=== PATIENT | male | born 1990 ===

== ENCOUNTER 2016-08-22 06:52 | Observation (INO) | payer MEDICAID ==
[2016-08-22 07:11] VITALS: O2SAT 96
--- NOTE | 2016-08-22 07:58 | ED PDOC ---
HPI: Chest Pain Time Seen by Provider: 08/22/16 07:14 Chief Complaint (Nursing): Chest Pain Chief Complaint (Provider): Chest Pain History Per: Patient History/Exam Limitations: no limitations Onset/Duration Of Symptoms: Days (x2 days) Current Symptoms Are (Timing): Still Present Additional Complaint(s): 26 y/o male with a past medical history of hypertension who presents to the emergency department with a complaint of a diffuse chest tightness that worsened this morning before going to sleep. Associated with a difficulty breathing, cough, and mild sputum x2 days. Denies fever, chills. Of note, patient reports he works overnight shifts for a [employer], came home this morning and was not able to sleep due to the discomfort. PMD: Dr. Aniket Larson MD (Has an appointment Thursday for a physical exam; Last visit was 2 months ago for a cough & cold and was prescribed medications and inhaler) Past Medical History Reviewed: Historical Data, Nursing Documentation, Vital Signs Vital Signs: Last Vital Signs Temp 98.3 F 08/22/16 07:05 Pulse 92 H 08/22/16 07:05 Resp 16 08/22/16 07:05 BP 153/96 H 08/22/16 07:05 Pulse Ox 96 08/22/16 14:26 - Medical History PMH: HTN Denies: Chronic Kidney Disease - Surgical History Other surgeries: Bilateral knee surgery - Family History Family History: States: Diabetes (grandfather) - Social History Current smoker - smoking cessation education provided: Yes (Heavy Smoker > 10 Cigarettes Daily ) Alcohol: None Drugs: Denies - Home Medications Home Medications: Ambulatory Orders Medication Instructions Recorded Lisinopril/Hydrochlorothiazide 1 tab PO DAILY 08/22/16 [Lisinopril-Hctz 20-12.5 mg Tab] - Allergies Allergies/Adverse Reactions: Allergies Allergy/AdvReac Type Severity Reaction Status Date / Time sulfamethoxazole Allergy Mild RASH Verified 02/07/16 01:25 [From Bactrim] Sulfa (Sulfonamide Allergy RASH Verified 06/22/15 14:01 Antibiotics) trimethoprim Allergy RASH Verified 06/22/15 14:01 Review of Systems ROS Statement: Except As Marked, All Systems Reviewed And Found Negative Constitutional: Negative for: Fever, Chills Cardiovascular: Positive for: Other (Diffuse Chest tightness) Respiratory: Positive for: Cough, Sputum (Mild), Other (Difficulty breathing) Physical Exam - Reviewed Nursing Documentation Reviewed: Yes Vital Signs Reviewed: Yes - Physical Exam Appears: Positive for: Non-toxic, No Acute Distress Head Exam: Positive for: ATRAUMATIC, NORMOCEPHALIC Skin: Positive for: Normal Color, Warm, Dry ENT: Positive for: Pharyngeal Erythema (Mild; with abscess ulcer noted) Neck: Positive for: Normal, Supple Cardiovascular/Chest: Positive for: Regular Rate, Rhythm. Negative for: Murmur Respiratory: Positive for: Normal Breath Sounds. Negative for: Accessory Muscle Use, Respiratory Distress Gastrointestinal/Abdominal: Positive for: Normal Exam, Soft. Negative for: Tenderness Extremity: Positive for: Normal ROM. Negative for: Tenderness (No calf tenderness), Pedal Edema, Swelling, Other (negative chitra's sign ) Neurologic/Psych: Positive for: Alert, Oriented - Laboratory Results Result Diagrams: 08/22/16 08:36 08/22/16 08:36 - ECG O2 Sat by Pulse Oximetry: 96 (RA) Pulse Ox Interpretation: Normal Medical Decision Making Medical Decision Making: Time: 7:14 Initial impression: Shortness of breath and chest pain. Differential diagnosis include pneumonia, and bronchitis Initial plan: --VBG Shock Panel --COMP Metabolic Panel --Troponin I Stat --CBC w/ differential --D Dimer (COAG) Stat --Partial Thromboplastin Time (COAG) --Prothrombin Time (COAG) --Chest Two Views (PA/LAT) (RAD) --Sodium Chloride 1,000 ml IV 125 mls/hr --Blood Culture Stat --[employer] CONT --IV Insertion (Saline lock) --Revaluation Time: 10:18 --Chest X-ray FINDINGS: LUNGS: The lungs are clear. There is no focal consolidation. PLEURA: No significant pleural effusion identified. No pneumothorax apparent. CARDIOVASCULAR: Normal. OSSEOUS STRUCTURES: No significant abnormalities. VISUALIZED UPPER ABDOMEN: Normal. OTHER FINDINGS: None. IMPRESSION: No active pulmonary disease. Time: 9:03 --Admit to hospital Routine Time: 11:02 --Angio Chest PE protocal (CT) Scribe Attestation: Documented by Rowena Soto, acting as a scribe for Maye Munoz MD. Provider Scribe Attestation: All medical record entries made by the Scribe were at my direction and personally dictated by me. I have reviewed the chart and agree that the record accurately reflects my personal performance of the history, physical exam, medical decision making, and the department course for this patient. I have also personally directed, reviewed, and agree with the discharge instructions and disposition. Disposition - Clinical Impression Clinical Impression: Chest pain - Patient ED Disposition Is Patient to be Admitted: Transfer of Care - Disposition Disposition: Transfer of Care Disposition Time: 14:43 Condition: FAIR Patient Signed Over To: Yana Lewis Present On Arrival: None
[2016-08-22] MEDS: Sodium Chloride 0.9% 1,000 ML IV SCH ×2 (08:21→17:13)
[2016-08-22 08:25] LABS: VENOUS BLOOD GAS BASE EXCESS 6.5 mmol/L (0.0-2.0); VENOUS BLOOD GAS PCO2 53 mmHg (40-60)
[2016-08-22 08:40] LABS: BASO # 0.1 K/uL (0.0-0.2); BASO % 0.8 % (0.0-2.0); EOS # 0.7 K/uL (0.0-0.7); EOS % 6.4 % (0.0-4.0); HEMATOCRIT 40.8 % (35.0-51.0); LYMPH # 2.1 K/uL (1.0-4.3); LYMPH % 19.5 % (20.0-40.0); MEAN CELL VOLUME 89.8 fl (80.0-94.0); MEAN CORPUSCULAR HEMOGLOBIN 29.9 pg (27.0-31.0); MEAN CORPUSCULAR HGB CONC 33.3 g/dL (33.0-37.0); MEAN PLATELET VOLUME 8.8 fl (7.2-11.7); MONO # 0.8 K/uL (0.0-0.8); MONO % 7.5 % (0.0-10.0); NEUT # 6.9 K/uL (1.8-7.0); NEUT % 65.8 % (50.0-75.0); NRBC % 0.1 % (0.0-0.0); RED CELL DISTRIBUTION WIDTH 13.9 % (11.5-14.5); WHITE BLOOD COUNT 10.5 K/uL (4.8-10.8)
[2016-08-22 08:52] LABS: ALB/GLOB RATIO 0.9 (1.0-2.1); ALKALINE PHOSPHATASE 88 U/L (38-126); ALT/SGPT 42 U/L (21-72); AST/SGOT 39 U/L (17-59); BILIRUBIN,TOTAL 0.5 mg/dl (0.2-1.3); BLOOD UREA NITROGEN 13 mg/dl (9-20); CALCIUM 9.7 mg/dL (8.4-10.2); CARBON DIOXIDE 29 mmol/L (22-30); CHLORIDE 101 mmol/L (98-107); GFR AFRICAN-AMERICAN > 60; GLUCOSE,RANDOM 164 mg/dL (75-110); POTASSIUM 3.8 MMOL/L (3.6-5.0); SODIUM 144 mmol/l (132-148); TOTAL PROTEIN 8.5 G/DL (6.3-8.2)
[2016-08-22 09:29] LABS: PARTIAL THROMBOPLASTIN TIME 27.9 SECONDS (23.3-32.5)
--- NOTE | 2016-08-22 10:19 | RAD ---
HISTORY: Dyspnea and tightness for 2-3 days, cough hx COMPARISON: 05/20/2016 TECHNIQUE: Chest PA and lateral FINDINGS: LUNGS: The lungs are clear. There is no focal consolidation. PLEURA: No significant pleural effusion identified. No pneumothorax apparent. CARDIOVASCULAR: Normal. OSSEOUS STRUCTURES: No significant abnormalities. VISUALIZED UPPER ABDOMEN: Normal. OTHER FINDINGS: None. IMPRESSION: No active pulmonary disease.
[2016-08-22] MEDS ORDERED: Iodixanol 320 MG/ML 100 ML BOTTLE IV ONE (11:54)
[2016-08-22] MEDS ORDERED: Sodium Chloride 0.9% 50 ML IV ONE (11:58)
--- NOTE | 2016-08-22 13:55 | CT ---
PROCEDURE: CT Chest with contrast (Pulmonary Angiogram) HISTORY: chest tightness, morbid obesity, elevated dimer COMPARISON: None available. TECHNIQUE: Axial computed tomography images were obtained of the chest in the pulmonary arterial phase of enhancement. Coronal and sagittal reformatted images were created and reviewed. Examination is of suboptimal diagnostic quality due to missed bolus and extensive streak artifacts from patient body habitus. Intravenous contrast dose: 95 mL Visipaque Radiation dose: Total exam DLP = 447.939 mGy-cm. This CT exam was performed using one or more of the following dose reduction techniques: Automated exposure control, adjustment of the mA and/or kV according to patient size, and/or use of iterative reconstruction technique. FINDINGS: PULMONARY ARTERIES: Please note examination is of suboptimal diagnostic quality for evaluation of pulmonary emboli due to missed bolus. AORTA: The aorta is normal in caliber. LUNGS: The lungs are well inflated and clear. No nodule, mass or pulmonary consolidation. PLEURAL SPACES: No effusion orpneumothorax. HEART: No cardiomegaly. No significant pericardial effusion. LYMPH NODES: No lymphadenopathy. BONES, CHEST WALL: There is mild multilevel degenerative disc disease. No fracture or destructive lesion OTHER FINDINGS: There is moderate bilateral gynecomastia. IMPRESSION: Suboptimal diagnostic quality due to missed bolus and extensive streak artifacts from patient body habitus. Allowing for this, no evidence of pneumothorax, pleural effusion or consolidation
--- NOTE | 2016-08-22 15:28 | ED PDOC ---
- Laboratory Results Result Diagrams: 08/22/16 08:36 08/22/16 08:36 - ECG O2 Sat by Pulse Oximetry: 96 (RA) Pulse Ox Interpretation: Normal Medical Decision Making Medical Decision Making: Time: 15:00 --Pending VQ scan, reassessment, and final disposition. 17:00 VQ scan low prob for PE DW pt findings and plan of care. pt reports chief concern is severe cough/ congestion. Rx given for bronchitis treatment. Scribe Attestation: Documented by Rowena Soto, acting as a scribe for Yana Lewis MD. Provider Scribe Attestation: All medical record entries made by the Scribe were at my direction and personally dictated by me. I have reviewed the chart and agree that the record accurately reflects my personal performance of the history, physical exam, medical decision making, and the department course for this patient. I have also personally directed, reviewed, and agree with the discharge instructions and disposition. Disposition - Clinical Impression Clinical Impression: Chest pain, Bronchitis - POA Present On Arrival: None - Disposition Disposition: Routine/Home Disposition Time: 17:00 Condition: STABLE
[2016-08-22 17:18] VITALS: BP 148/71; PULSE 75; RESP 19; TEMP 97.5
--- NOTE | 2016-08-22 17:20 | NM ---
COMPARISON: August 22, 2016. CT angiogram. TECHNIQUE: 42.6 mCi technetium 99-m DTPA aerosol. 6.0 mCI technetium 99-m MAA administered intravenously. FINDINGS: VENTILATION COMPONENT: No significant ventilatory abnormalities. Incidental finding(s): Ingested radionuclide in the esophagus and stomach. PERFUSION COMPONENT: Heterogeneous distribution of radionuclide. No geographic, segmental, lobar abnormalities apparent on the present examination. IMPRESSION: Low probability ventilation perfusion scan for pulmonary embolism.
== END 2016-08-22 17:43 | disposition home or self-care (01) ==
LOC: H.ER 06:52 → H.EROBSV 11:03
PROVIDERS: ADMIT Emergency Medicine; ATTEND Emergency Medicine
DX: R07.9 Chest pain, unspecified (principal); J40 Bronchitis, not specified as acute or chronic; F17.210 Nicotine dependence, cigarettes, uncomplicated; I10 Essential (primary) hypertension; Z88.2 Allergy status to sulfonamides

== ENCOUNTER 2016-10-30 06:50 | Observation (INO) | payer MEDICAID ==
--- NOTE | 2016-10-30 07:44 | ED PDOC ---
HPI: Abdomen Time Seen by Provider: 10/30/16 07:16 Chief Complaint (Nursing): Abdominal Pain Chief Complaint (Provider): Abdominal pain History Per: Patient History/Exam Limitations: no limitations Onset/Duration Of Symptoms: Hrs Outside of [place] travel?: No Current Symptoms Are (Timing): Still Present Severity: Moderate Location Of Pain/Discomfort: Other (right flank) Quality Of Discomfort: "Pain" Alleviating Factors: denies: OTC Meds Additional History Per: Patient Additional Complaint(s): The pt is a 26yo male, PMHx of HTN, left leg surgery, presents to ED for evaluation of right flank pain, radiating to his abdomen and right testicle. Pt reports he took Tylenol for his pain with no relief. He denies any fever, chills , nausea, vomiting. Offers no additional medical complaints. Past Medical History Reviewed: Historical Data, Nursing Documentation, Vital Signs Vital Signs: Last Vital Signs Temp 97.6 F 10/30/16 16:05 Pulse 78 10/30/16 16:05 Resp 20 10/30/16 16:05 BP 130/78 10/30/16 16:05 Pulse Ox 95 11/01/16 21:14 - Medical History PMH: HTN Denies: Chronic Kidney Disease - Surgical History Other surgeries: Left leg surgery - Family History Family History: States: Unknown Family Hx, Diabetes (grandfather) - Social History Current smoker - smoking cessation education provided: Yes SMOKER/PACKS PER DAY:: 1 Alcohol: None Drugs: Denies - Home Medications Home Medications: Ambulatory Orders Medication Instructions Recorded Albuterol HFA [Ventolin HFA 90 2 puff IH Q4H PRN #1 inh 08/22/16 mcg/actuation (8 g)] Azithromycin [Zithromax] 250 mg PO DAILY #6 dose 08/22/16 Lisinopril/Hydrochlorothiazide 1 tab PO DAILY 08/22/16 [Lisinopril-Hctz 20-12.5 mg Tab] Nitrofurantoin Macrocrystals 100 mg PO BID #14 cap 10/30/16 [Macrobid] - Allergies Allergies/Adverse Reactions: Allergies Allergy/AdvReac Type Severity Reaction Status Date / Time sulfamethoxazole Allergy Mild RASH Verified 02/07/16 01:25 [From Bactrim] Sulfa (Sulfonamide Allergy RASH Verified 06/22/15 14:01 Antibiotics) trimethoprim Allergy RASH Verified 06/22/15 14:01 Review of Systems ROS Statement: Except As Marked, All Systems Reviewed And Found Negative Gastrointestinal: Positive for: Abdominal Pain. Negative for: Nausea, Vomiting Genitourinary Male: Positive for: Other (testicular pain). Negative for: Dysuria, Hematuria, Penile Discharge Physical Exam - Reviewed Nursing Documentation Reviewed: Yes - Physical Exam Appears: Positive for: Well, Non-toxic, No Acute Distress (obese) Head Exam: Positive for: ATRAUMATIC, NORMAL INSPECTION, NORMOCEPHALIC Skin: Positive for: Normal Color, Warm, DRY Eye Exam: Positive for: Normal appearance Neck: Positive for: Normal, Supple Cardiovascular/Chest: Positive for: Regular Rate, Rhythm Respiratory: Positive for: Normal Breath Sounds. 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 Plan: -- CT AP -- Urine culture -- Toradol -- Morphine Reassess pt feels better after medication. given results of CT and discussed follow up outpt pt with uti pt understands Scribe Attestation: Documented by Bailee Andino acting as a scribe for Anita Lam MD. Provider Attestation: All medical record entries made by the Scribe were at my direction and personally dictated by me. I have reviewed the chart and agree that the record accurately reflects my personal performance of the history, physical exam, medical decision making, and the department course for this patient. I have also personally directed, reviewed, and agree with the discharge instructions and disposition. ED OBSERVATION Date of observation admission: 10/30/16 Time of observation admission: 09:10 - Observation admission statement Patient is being placed in observation because:: Awaiting CT AP. - Progress Note Progress Note: 10/30/16 13:36 CT AP Impression: 1. Examination is of suboptimal diagnostic quality due to extensive streak artifacts from patient body habitus. Alowing for this, no evidence of nephrolithiasis, hydronephrosis or obstructive uropathy. 2. Hepatic steaosis Urinalysis indicates UTI. Pt stable for d/c home. Disposition - Clinical Impression Clinical Impression: Abdominal discomfort, UTI (urinary tract infection) - Patient ED Disposition Is Patient to be Admitted: No Counseled Patient/Family Regarding: Studies Performed, Diagnosis, Need For Followup - Disposition Disposition: Routine/Home Disposition Time: 13:38 Condition: STABLE
[2016-10-30 08:33] LABS: BASO # 0.1 K/uL (0.0-0.2); BASO % 0.5 % (0.0-2.0); EOS # 0.2 K/uL (0.0-0.7); EOS % 1.4 % (0.0-4.0); HEMOGLOBIN 13.3 g/dL (12.0-18.0); LYMPH # 1.1 K/uL (1.0-4.3); LYMPH % 9.5 % (20.0-40.0); MEAN CELL VOLUME 87.8 fl (80.0-94.0); MEAN CORPUSCULAR HEMOGLOBIN 29.2 pg (27.0-31.0); MEAN CORPUSCULAR HGB CONC 33.3 g/dL (33.0-37.0); MEAN PLATELET VOLUME 8.3 fl (7.2-11.7); MONO # 0.6 K/uL (0.0-0.8); MONO % 4.7 % (0.0-10.0); NEUT % 83.9 % (50.0-75.0); PLATELET COUNT 273 K/uL (130-400); RBC 4.55 Mil/uL (4.40-5.90); RED CELL DISTRIBUTION WIDTH 14.2 % (11.5-14.5); WHITE BLOOD COUNT 11.9 K/uL (4.8-10.8)
[2016-10-30 08:42] LABS: ALBUMIN 4.7 g/dL (3.5-5.0); ALT/SGPT 48 U/L (21-72); AST/SGOT 32 U/L (17-59); BLOOD UREA NITROGEN 12 mg/dl (9-20); CALCIUM 9.5 mg/dL (8.4-10.2); GFR AFRICAN-AMERICAN > 60; GFR NON-AFRICAN AMERICAN > 60
[2016-10-30 10:06] LABS: SQUAMOUS EPITHIAL 5 /hpf (0-5); URINE BILIRUBIN NEGATIVE (NEGATIVE); URINE BLOOD NEGATIVE (NEGATIVE); URINE CLARITY SLIGHTY-CLOUDY (Clear); URINE COLOR YELLOW (YELLOW); URINE GLUCOSE (UA) NEG (Normal); URINE LEUKOCYTE ESTERASE SMALL Leu/uL (Negative); URINE NITRATE NEGATIVE (NEGATIVE); URINE PROTEIN 100 mg/dL (NEGATIVE); URINE UROBILINOGEN 0.2-1.0 mg/dL (0.2-1.0)
[2016-10-30 11:14] LABS: LYMPHOCYTE 9 % (20-50); MONOCYTE 5 % (0-10); NEUTROPHIL 86 % (42-75); TOTAL CELLS COUNTED 100
[2016-10-30 11:15] LABS: ANISOCYTOSIS SLIGHT; LARGE PLATELETS PRESENT; OVALOCYTES SLIGHT; PLATELET ESTIMATE NORMAL (NORMAL)
--- NOTE | 2016-10-30 13:28 | CT ---
PROCEDURE: CT Abdomen and Pelvis without intravenous contrast HISTORY: flank pain COMPARISON: 11/02/2015. TECHNIQUE: CT scan of the abdomen and pelvis was performed without administration of oral or intravenous contrast. Coronal and sagittal reformatted images were obtained. Examination is limited by extensive streak artifacts from patient body habitus. Radiation dose: Total exam DLP = 1139.23 mGy-cm. This CT exam was performed using one or more of the following dose reduction techniques: Automated exposure control, adjustment of the mA and/or kV according to patient size, and/or use of iterative reconstruction technique. FINDINGS: LOWER THORAX: The lung bases are clear. LIVER: There is mild hepatomegaly. There is diffuse low-attenuation in the liver. No intrahepatic biliary ductal dilatation. GALLBLADDER AND BILE DUCTS: The gallbladder is partially contracted PANCREAS: The pancreas is normal in size. No calcifications or ductal dilatation. SPLEEN: The spleen is normal in size. ADRENALS: Both adrenal glands are normal in size without discrete nodule. KIDNEYS AND URETERS: Both kidneys are normal in size. No hydronephrosis or nephrolithiasis. VASCULATURE: No evidence of aortic aneurysm. BOWEL: The small bowel loops are normal in caliber. No evidence of bowel dilatation. There is mild colonic diverticulosis without CT evidence for acute diverticulitis APPENDIX: Normal appendix. PERITONEUM: No free fluid. No free air. LYMPH NODES: No enlarged lymph nodes. BLADDER: Grossly normal in appearance. REPRODUCTIVE: Unremarkable. BONES: No acute fracture. Within normal limits for the patient's age. OTHER FINDINGS: None. IMPRESSION: 1. Examination is of suboptimal diagnostic quality due to extensive streak artifacts from patient body habitus. Allowing for this, no evidence of nephrolithiasis, hydronephrosis or obstructive uropathy. 2. Hepatic steatosis. 3. Additional comments as described above.
[2016-10-30 13:39] VITALS: RESP 20
[2016-10-30 19:30] VITALS: BP 130/78; PULSE 78; TEMP 97.6
[2016-11-01 21:15] VITALS: O2SAT 95
== END 2016-10-30 17:00 | disposition home or self-care (01) ==
LOC: H.ER 06:50 → H.EROBSV 09:11
PROVIDERS: ADMIT Emergency Medicine; ATTEND Emergency Medicine
DX: N39.0 Urinary tract infection, site not specified (principal); I10 Essential (primary) hypertension; F17.210 Nicotine dependence, cigarettes, uncomplicated; Z88.2 Allergy status to sulfonamides

== ENCOUNTER 2016-11-05 02:37 | Emergency (ER) | payer MEDICAID ==
[2016-11-05 02:52] VITALS: BMI 64.9
[2016-11-05 02:56] VITALS: RESP 16; TEMP 97.8; O2SAT 97
[2016-11-05 03:27] LABS: BASO # 0.1 K/uL (0.0-0.2); BASO % 0.6 % (0.0-2.0); EOS # 0.3 K/uL (0.0-0.7); EOS % 2.1 % (0.0-4.0); HEMOGLOBIN 13.7 g/dL (12.0-18.0); LYMPH # 1.4 K/uL (1.0-4.3); LYMPH % 11.8 % (20.0-40.0); MEAN CELL VOLUME 87.6 fl (80.0-94.0); MEAN CORPUSCULAR HEMOGLOBIN 29.1 pg (27.0-31.0); MEAN CORPUSCULAR HGB CONC 33.3 g/dL (33.0-37.0); MEAN PLATELET VOLUME 8.2 fl (7.2-11.7); MONO # 0.6 K/uL (0.0-0.8); MONO % 4.9 % (0.0-10.0); NEUT # 9.8 K/uL (1.8-7.0); NEUT % 80.6 % (50.0-75.0); RBC 4.69 Mil/uL (4.40-5.90); WHITE BLOOD COUNT 12.2 K/uL (4.8-10.8)
[2016-11-05 03:29] LABS: SQUAMOUS EPITHIAL 1 /hpf (0-5); URINE BACTERIA RARE (<OCC); URINE BILIRUBIN NEGATIVE (NEGATIVE); URINE BLOOD NEGATIVE (NEGATIVE); URINE CLARITY CLEAR (Clear); URINE COLOR YELLOW (YELLOW); URINE GLUCOSE (UA) NEG (Normal); URINE LEUKOCYTE ESTERASE SMALL Leu/uL (Negative); URINE NITRATE NEGATIVE (NEGATIVE); URINE PROTEIN 30 mg/dL (NEGATIVE); URINE UROBILINOGEN 0.2-1.0 mg/dL (0.2-1.0)
[2016-11-05 03:39] LABS: BLOOD UREA NITROGEN 11 mg/dl (9-20); CALCIUM 9.2 mg/dL (8.4-10.2); GFR AFRICAN-AMERICAN > 60; GFR NON-AFRICAN AMERICAN > 60
--- NOTE | 2016-11-05 03:40 | ED PDOC ---
HPI: Male Pain Time Seen by Provider: 11/05/16 02:53 Chief Complaint (Nursing): Male Genitourinary Chief Complaint (Provider): Male Genitourinary History Per: Patient History/Exam Limitations: other (Physical exam limited secondary to copious adipose tissue) Onset/Duration Of Symptoms: Hrs (since last afternoon) Current Symptoms Are (Timing): Still Present Additional Complaint(s): 26 year old morbidly obese male presents to ED with complaints of left testicular pain since last afternoon and was recently diagnosed with a UTI. Patient states that initially he had right flank pain radiating to his right testicle, but now he has left testicular pain radiating to his left flank. (-) nausea, vomiting, fever, chills, dysuria, or chills. Confirms that he is sexually active and uses protection. PCP: Aniket Larson Past Medical History Reviewed: Historical Data, Nursing Documentation, Vital Signs Vital Signs: Last Vital Signs Temp 97.8 F 11/05/16 02:53 Pulse 96 H 11/05/16 02:53 Resp 16 11/05/16 02:53 BP 180/108 H 11/05/16 02:53 Pulse Ox 97 11/05/16 02:53 - Medical History PMH: HTN Denies: Chronic Kidney Disease - Surgical History Surgical History: No Surg Hx - Family History Family History: States: Diabetes (grandfather) - Social History Alcohol: None - Home Medications Home Medications: Ambulatory Orders Medication Instructions Recorded Albuterol HFA [Ventolin HFA 90 2 puff IH Q4H PRN #1 inh 08/22/16 mcg/actuation (8 g)] Azithromycin [Zithromax] 250 mg PO DAILY #6 dose 08/22/16 Lisinopril/Hydrochlorothiazide 1 tab PO DAILY 08/22/16 [Lisinopril-Hctz 20-12.5 mg Tab] Nitrofurantoin Macrocrystals 100 mg PO BID #14 cap 10/30/16 [Macrobid] Cyclobenzaprine [Cyclobenzaprine 10 mg PO BID #15 tab 11/05/16 HCl] Ibuprofen [Motrin Tab] 600 mg PO Q6 #30 tab 11/05/16 Lidocaine 1 each TP DAILY #10 adh..patch 11/05/16 - Allergies Allergies/Adverse Reactions: Allergies Allergy/AdvReac Type Severity Reaction Status Date / Time sulfamethoxazole Allergy Mild RASH Verified 02/07/16 01:25 [From Bactrim] Sulfa (Sulfonamide Allergy RASH Verified 06/22/15 14:01 Antibiotics) trimethoprim Allergy RASH Verified 06/22/15 14:01 Review of Systems ROS Statement: Except As Marked, All Systems Reviewed And Found Negative Constitutional: Negative for: Fever, Chills Gastrointestinal: Negative for: Nausea, Vomiting Genitourinary Male: Positive for: Other (Left testicular pain). Negative for: Dysuria, Penile Discharge Musculoskeletal: Positive for: Other (Left testicular pain radiates to left flank) Physical Exam - Reviewed Nursing Documentation Reviewed: Yes Vital Signs Reviewed: Yes - Physical Exam Appears: Positive for: Non-toxic, No Acute Distress (Morbidly obese) Skin: Positive for: Normal Color, Warm, Dry Eye Exam: Positive for: Normal appearance Neck: Positive for: Normal Cardiovascular/Chest: Positive for: Regular Rate, Rhythm. Negative for: Murmur Respiratory: Positive for: Normal Breath Sounds. Negative for: Respiratory Distress Gastrointestinal/Abdominal: Positive for: Soft. Negative for: Tenderness Male Genital Exam: Positive for: normal genitalia, other (Genital exam difficult secondary to adiposity). Negative for: no hernia, scrotum tenderness (R), scrotum tenderness (L), testicular tenderness (R), testicular tenderness (L ) Back: Positive for: Normal Inspection. Negative for: L CVA Tenderness, R CVA Tenderness Extremity: Negative for: Deformity Neurologic/Psych: Positive for: Alert, Oriented. Negative for: Motor/Sensory Deficits - Laboratory Results Result Diagrams: 11/05/16 03:23 11/05/16 03:23 - ECG O2 Sat by Pulse Oximetry: 97 (RA) Pulse Ox Interpretation: Normal Medical Decision Making Medical Decision Makin Initial impression: unspecified testicular pain r/o testicular torsion Initial plan: * Labs * Chlamydia/GC RNA, TMA * Toradol 30mg IVP * UA * US TESTICULAR * Re-eval 0330 Of note, patient's UCx did not grow any species 0509 US FINDINGS Right testicle: No mass. No torsion. Left testicle: No mass. No torsion. Epididymides: Unremarkable as visualized. Scrotum: Unremarkable. IMPRESSION: No sonographic evidence of testicular torsion. 0546 Upon re-evaluation, patient is feeling much better and is medically stable and ready for discharge. Counseling has been provided and patient is in agreement. Return if symptoms persist or acutely worsen. Scribe Attestation: Documented by Davida Chopra acting as a scribe for Geraldo Turk MD. Scribe Attestation: All medical record entries made by the Scribe were at my direction and personally dictated by me. I have reviewed the chart and agree that the record accurately reflects my personal performance of the history, physical exam, medical decision making, and the department course for this patient. I have also personally directed, reviewed, and agree with the discharge instructions and disposition. Disposition - Clinical Impression Clinical Impression: Testicular pain, Back pain - Patient ED Disposition Is Patient to be Admitted: No Counseled Patient/Family Regarding: Studies Performed - Disposition Disposition: Routine/Home Disposition Time: 05:46 Condition: STABLE Prescriptions: Cyclobenzaprine [Cyclobenzaprine HCl] 10 mg PO BID #15 tab Ibuprofen [Motrin Tab] 600 mg PO Q6 #30 tab Lidocaine 1 each TP DAILY #10 adh..patch Instructions: Acute Abdominal Pain (ED), Obesity (ED), Testicle Pain (ED), Back Pain (ED), Back Exercises (ED)
--- NOTE | 2016-11-05 05:09 | US ---
EXAM: US Scrotum CLINICAL HISTORY: 26 years old, male; Pain; Flank pain and scrotum pain; Additional info: R/O testicular torsion TECHNIQUE: Real-time ultrasound of the scrotum with color Doppler and image documentation. COMPARISON: No relevant prior studies available. FINDINGS: Right testicle: No mass. No torsion. Left testicle: No mass. No torsion. Epididymides: Unremarkable as visualized. Scrotum: Unremarkable. IMPRESSION: No sonographic evidence of testicular torsion.
[2016-11-05 06:45] VITALS: BP 155/84; PULSE 85
== END 2016-11-05 06:30 | disposition home or self-care (01) ==
LOC: H.ER 02:37
DX: N50.82 Scrotal pain (principal); M54.9 Dorsalgia, unspecified; E66.01 Morbid (severe) obesity due to excess calories; I10 Essential (primary) hypertension; N39.0 Urinary tract infection, site not specified; N50.811 Right testicular pain

== ENCOUNTER 2017-04-20 10:22 | Emergency (ER) | payer MEDICAID ==
[2017-04-20 10:30] VITALS: BMI 69.2
[2017-04-20 10:32] VITALS: BP 135/71; PULSE 96; RESP 20; TEMP 97.9; O2SAT 95
--- NOTE | 2017-04-20 11:15 | ED PDOC ---
Lower Extremity Pain/Injury Time Seen by Provider: 04/20/17 10:42 Chief Complaint (Nursing): Lower Extremity Problem/Injury Chief Complaint (Provider): Left knee pain and redness History Per: Patient History/Exam Limitations: no limitations Onset/Duration Of Symptoms: Days (x3) Current Symptoms Are (Timing): Still Present Additional Complaint(s): Florentin Gaines is a 27 year old male with a past medical history of hypertension, cellulitis, and left knee with removal of hardware 2 years ago presenting to the ED for an evaluation of left knee pain and redness occurring for 3 days prior to arrival. The patient denies fever or drainage. PMD: Aniket Larson MD Past Medical History Reviewed: Historical Data, Nursing Documentation, Vital Signs Vital Signs: Last Vital Signs Temp 97.9 F 04/20/17 10:30 Pulse 96 H 04/20/17 10:30 Resp 20 04/20/17 10:30 BP 135/71 04/20/17 10:30 Pulse Ox 95 04/20/17 10:30 - Medical History PMH: HTN Denies: Chronic Kidney Disease Other PMH: cellulitis - Surgical History Other surgeries: left knee surgery - Family History Family History: States: Diabetes (grandfather) - Social History Current smoker - smoking cessation education provided: Yes Alcohol: Social Drugs: Denies - Home Medications Home Medications: Ambulatory Orders Medication Instructions Recorded Albuterol HFA [Ventolin HFA 90 2 puff IH Q4H PRN #1 inh 08/22/16 mcg/actuation (8 g)] Azithromycin [Zithromax] 250 mg PO DAILY #6 dose 08/22/16 Lisinopril/Hydrochlorothiazide 1 tab PO DAILY 08/22/16 [Lisinopril-Hctz 20-12.5 mg Tab] Nitrofurantoin Macrocrystals 100 mg PO BID #14 cap 10/30/16 [Macrobid] Cyclobenzaprine [Cyclobenzaprine 10 mg PO BID #15 tab 11/05/16 HCl] Ibuprofen [Motrin Tab] 600 mg PO Q6 #30 tab 11/05/16 Lidocaine 1 each TP DAILY #10 adh..patch 11/05/16 Clindamycin [Cleocin] 300 mg PO Q8 #30 cap 04/20/17 Naproxen [Naprosyn] 500 mg PO Q12H #20 tab 04/20/17 - Allergies Allergies/Adverse Reactions: Allergies Allergy/AdvReac Type Severity Reaction Status Date / Time sulfamethoxazole Allergy Mild RASH Verified 02/07/16 01:25 [From Bactrim] Sulfa (Sulfonamide Allergy RASH Verified 06/22/15 14:01 Antibiotics) trimethoprim Allergy RASH Verified 06/22/15 14:01 Review of Systems ROS Statement: Except As Marked, All Systems Reviewed And Found Negative Constitutional: Negative for: Fever Musculoskeletal: Positive for: Leg Pain (left knee pain and redness). Negative for: Other (left knee: no drainage) Physical Exam - Reviewed Nursing Documentation Reviewed: Yes Vital Signs Reviewed: Yes - Physical Exam Appears: Positive for: Non-toxic, No Acute Distress Head Exam: Positive for: ATRAUMATIC, NORMOCEPHALIC Skin: Positive for: Normal Color, Warm, Dry Eye Exam: Positive for: Normal appearance, EOMI ENT: Positive for: Normal ENT Inspection Neck: Positive for: Normal, Painless ROM Cardiovascular/Chest: Positive for: Regular Rate, Rhythm, Chest Non Tender Respiratory: Positive for: Normal Breath Sounds. Negative for: Respiratory Distress Gastrointestinal/Abdominal: Positive for: Normal Exam, Soft. Negative for: Tenderness Back: Positive for: Normal Inspection Extremity: Positive for: Tenderness (left knee: tenderness with mild warmth over patella; no crepitance), Other (left knee: mild erythema over patella; surgical scar healed with no new wounds or drainage). Negative for: Deformity Neurologic/Psych: Positive for: Alert, Oriented (x3). Negative for: Motor/ Sensory Deficits - Laboratory Results Result Diagrams: 04/20/17 11:50 04/20/17 11:50 - ECG O2 Sat by Pulse Oximetry: 95 (RA) Pulse Ox Interpretation: Normal Medical Decision Making Medical Decision Making: Time: 10:42 Impression: Left knee pain and redness Plan: * VBG * CMP * CBC (with differential) * Blood Culture * Toradol 30 mg IVP * [RAD] Knee 3 Views Right * Reevaluation Scribe Attestation: Documented by Elvia Jaquez, acting as a scribe for Ren Garces MD. Provider Scribe Attestation: All medical record entries made by the Scribe were at my direction and personally dictated by me. I have reviewed the chart and agree that the record accurately reflects my personal performance of the history, physical exam, medical decision making, and the department course for this patient. I have also personally directed, reviewed, and agree with the discharge instructions and disposition. Disposition - Clinical Impression Clinical Impression: Cellulitis - Patient ED Disposition Is Patient to be Admitted: No Counseled Patient/Family Regarding: Studies Performed, Diagnosis, Need For Followup, Rx Given - Disposition Referrals: Bryan Riley MD [Staff Provider] - [facility] [Outside] Disposition: Routine/Home Disposition Time: 14:36 Condition: FAIR Prescriptions: Clindamycin [Cleocin] 300 mg PO Q8 #30 cap Naproxen [Naprosyn] 500 mg PO Q12H #20 tab Instructions: Cellulitis (ED) Forms: [employer] (Paraguayan)
[2017-04-20 11:54] LABS: BASO # 0.1 K/uL (0.0-0.2); BASO % 0.8 % (0.0-2.0); EOS # 0.5 K/uL (0.0-0.7); EOS % 4.3 % (0.0-4.0); HEMATOCRIT 40.4 % (35.0-51.0); LYMPH # 1.4 K/uL (1.0-4.3); LYMPH % 12.1 % (20.0-40.0); MEAN CELL VOLUME 86.8 fl (80.0-94.0); MEAN CORPUSCULAR HEMOGLOBIN 28.6 pg (27.0-31.0); MEAN CORPUSCULAR HGB CONC 32.9 g/dL (33.0-37.0); MEAN PLATELET VOLUME 8.9 fl (7.2-11.7); MONO # 0.6 K/uL (0.0-0.8); MONO % 5.5 % (0.0-10.0); NEUT % 77.3 % (50.0-75.0); NRBC % 0.1 % (0.0-0.0); RED CELL DISTRIBUTION WIDTH 14.7 % (11.5-14.5); WHITE BLOOD COUNT 11.6 K/uL (4.8-10.8)
[2017-04-20 12:08] LABS: VENOUS BLOOD GAS BASE EXCESS 5.6 mmol/L (0.0-2.0); VENOUS BLOOD GAS PCO2 58 mmHg (40-60); VENOUS BLOOD PH 7.36 (7.32-7.43)
[2017-04-20 12:34] LABS: ALKALINE PHOSPHATASE 68 U/L (38-126); ALT/SGPT 37 U/L (21-72); AST/SGOT 28 U/L (17-59); BILIRUBIN,TOTAL 0.7 mg/dl (0.2-1.3); BLOOD UREA NITROGEN 8 mg/dl (9-20); CALCIUM 8.8 mg/dL (8.4-10.2); CARBON DIOXIDE 31 mmol/L (22-30); CHLORIDE 98 mmol/L (98-107); GFR AFRICAN-AMERICAN > 60; GLUCOSE,RANDOM 154 mg/dL (75-110); POTASSIUM 3.8 MMOL/L (3.6-5.0); SODIUM 139 mmol/l (132-148); TOTAL PROTEIN 8.2 G/DL (6.3-8.2)
--- NOTE | 2017-04-20 13:58 | RAD ---
PROCEDURE: Left Knee Radiographs. HISTORY: Pain. COMPARISON: 05/20/2016 FINDINGS: BONES: No evidence of fracture. No radiographic manifestations of acute osteomyelitis. JOINTS: Suprapatellar joint effusion difficult to differentiate from diffuse cellulitis. JOINT EFFUSION: None. OTHER FINDINGS: None. IMPRESSION: Soft tissue swelling without acute articular or osseous abnormality.
[2017-04-20] MEDS ORDERED: Oxycodone/Acetaminophen 5/325 mg Tab ONE (13:59)
[2017-04-20] MEDS ORDERED: Oxycodone/Acetaminophen 5/325 mg Tab PO STA (14:40)
== END 2017-04-20 14:46 | disposition home or self-care (01) ==
LOC: H.ER 10:22
DX: L03.116 Cellulitis of left lower limb (principal); I10 Essential (primary) hypertension
CPT/HCPCS: 73562; 80053; 82803; 85025; 87040; 96374; 99283; J1885